=== PATIENT | female | born 1995 | race Two or more races ===

== ENCOUNTER 2022-09-18 11:31 | Outpatient (REF) | payer BC, SELFPAY ==
--- NOTE | 2022-09-18 09:15 | PAPFT_PTH ---
PATIENT: Ashli Peters LOC: [facility] U#:[id number] AGE/SX: 27/F ROOM: RE09/18/[address]: Negrita Wells : 1995 BED: DIS: 09/18/2022 SPEC #: [id number] RECD: 09/18/22 17:30 STATUS: KYRIE RERaza #: [id number] ARIANA: 09/18/22 09:[address]: Negrita Wells DEPT: [facility] Cytology RECD BY: Martita Dejesus Tissues: 1 - CX/ENDOCX FOR PAP SMEARS Procedures: PAP THIN PREP/[facility] Screening Comments: [id number]
== END 2022-09-18 11:32 | disposition home or self-care (01) ==
LOC: NCHCN 11:31
PROVIDERS: Visit Provider Nurse Practitioner Family
DX: Z12.4 Encounter for screening for malignant neoplasm of cervix (principal)
CPT/HCPCS: 88142

== ENCOUNTER 2024-05-12 15:10 | Outpatient (REF) | payer BC, SELFPAY ==
[2024-05-12 15:17] LABS: HCT 37.8 % (36.0-46.0); HGB 12.4 g/dL (11.2-15.7); MCH 30.2 pg (27.0-33.0); MCHC 32.8 % (32.0-36.0); MCV 92 fL (80-95); MPV 11.1 fL (8.0-11.0); Platelet Count 286 10^3/uL (130-400); RDW 12.1 % (11.7-14.6); RDW-SD 40.9 fL
[2024-05-12 15:37] LABS: ALT 15 U/L (14-59); AST 12 U/L (15-37); Albumin 4.2 g/dL (3.4-5.0); Alkaline Phosphatase 71 U/L (46-116); Anion Gap 8.6 mmol/L (3-11); BUN 9 mg/dL (7-18); Bilirubin, Total 0.38 mg/dL (0.2-1.0); CO2 29.4 mmol/L (21.0-32.0); CREATININE 0.8 mg/dL (0.55-1.02); Calcium 9.7 mg/dL (8.5-10.1); Calculated LDL 156 mg/dL (<100); Chloride 105 mmol/L (98-107); Cholesterol 243 mg/dL (<200); Estimated GFR 101.59 (mL/min/1.73m2); Glucose 91 mg/dL (74-106); HDL Cholesterol 70 mg/dL (40-60); Potassium 4.5 mmol/L (3.5-5.1); Sodium 143 mmol/L (136-145); Total Protein 7.3 g/dL (6.4-8.2); Triglyceride 85 mg/dL (<150)
== END 2024-05-12 15:11 | disposition home or self-care (01) ==
LOC: NCHCN 15:10
PROVIDERS: Visit Provider Nurse Practitioner Family
DX: Z00.00 Encounter for general adult medical examination without abnormal findings (principal)
CPT/HCPCS: 80053; 80061; 85027